=== PATIENT | female | born 1945 | race Two or more races ===

== ENCOUNTER → 2021-03-26 | Emergency (ER) | payer OTHER ==
[~2021-03-26] VITALS: Ht 152.4 cm; Wt 61.2 kg
[~2021-03-26] MED LIST: ACTOS15 MG; CORTISPORIN EAR10 M1 OPHT; JENTADUETO 2.51 EAC2; LIPITOR40 M1 PO; SYNTHROID88 MCG PO; TOPROL XL25 M1 PO
== END | disposition designated cancer center or children's hospital (05) ==
LOC: ER 11:03
DX: I61.9 Nontraumatic intracerebral hemorrhage, unspecified (principal); R00.0 Tachycardia, unspecified; Z11.52 Encounter for screening for COVID-19; I10 Essential (primary) hypertension